=== PATIENT | male | born 1935 | race Caucasian/White ===

== ENCOUNTER 2024-08-10 16:23 | Inpatient (IN) | payer MEDICARE ==
[2024-08-10 18:37] VITALS: BMI 32.8
[2024-08-10] MEDS: HYDROcodone/Acetaminophen 10/325 mg Tablet PO PRN (23:04)
[2024-08-11] MEDS ORDERED: Non-Formulary Item 1 EACH (Docusate Sodium [Stool Softener] 50 MG Capsule) PO PRN (06:32)
[2024-08-11] MEDS ORDERED: Silver Sulfadiazine 1% Cream 20 GM TUBE TOP PRN (06:32)
[2024-08-11] MEDS ORDERED: Bisacodyl 10 MG SUPP PR PRN (06:39)
[2024-08-11] MEDS ORDERED: Bisacodyl 5 MG TAB PO PRN (06:39)
[2024-08-11 07:47] LABS: Anion Gap 14 mmol/L (10-20); BUN (Urea Nitrogen) 21 mg/dL (8.4-25.7); Calc. Creatinine Clearance 100 mL/min (70-130); Calcium 8.6 mg/dL (7.8-10.44); Carbon Dioxide 22 mmol/L (23-31); Chloride 105 mmol/L (98-107); Estimated GFR 87; Glucose 94 mg/dL (83-110); Potassium 4.7 mmol/L (3.5-5.1); Sodium 136 mmol/L (136-145)
[2024-08-11] MEDS: Cefdinir 300 MG CAP PO SCH (08:48)
[2024-08-11] MEDS: Potassium Chloride 20 MEQ TAB PO SCH (08:50)
[2024-08-11] MEDS: Multivitamin w/Zinc Stress 1 TAB PO SCH (08:50)
[2024-08-11] MEDS: CO Q-10 CAPSULE 100 MG PO SCH (08:50)
[2024-08-11] MEDS: Multivit, Therapeutic 1 TAB PO SCH (08:50)
[2024-08-11] MEDS: Lisinopril 20 MG TAB PO SCH (08:51)
[2024-08-11] MEDS: Metoprolol Tartrate 50 MG TAB PO SCH (08:51)
[2024-08-11] MEDS: Zonisamide 100 MG CAP PO SCH (08:51)
[2024-08-11] MEDS: Ascorbic Acid 500 mg Chewable Tablet PO SCH (08:53)
[2024-08-11] MEDS: Furosemide 20 MG TAB PO SCH (08:54)
[2024-08-11] MEDS: Famotidine 20 MG TAB PO SCH (08:55)
[2024-08-11] MEDS: Apixaban 5 MG TAB PO SCH (08:56)
[2024-08-11] MEDS: Empagliflozin 10 MG TAB PO SCH (08:59)
[2024-08-11] MEDS: Loratadine 10 MG TAB PO SCH (08:59)
[2024-08-11] MEDS ORDERED: Silver Sulfadiazine 1% Cream 20 GM TUBE TP PRN (10:19)
[2024-08-11] MEDS: Doxazosin 2 MG TAB PO SCH (20:52)
[2024-08-11] MEDS: Latanoprost 0.005% Ophth Soln 2.5 ml Bottle EA EYE SCH (20:53)
[2024-08-11] MEDS: Senokot 8.6 MG TAB PO SCH (20:53)
[2024-08-11] MEDS ORDERED: PRAVASTATIN SODIUM 40 MG PO SCH (21:00)
[2024-08-11] MEDS: HYDROcodone/Acetaminophen 10/325 mg Tablet PO PRN (21:01)
[2024-08-11] MEDS: PRAVASTATIN SODIUM 40 MG PO SCH (21:03)
[2024-08-12 05:30] LABS: #Basophils 0.1 thou/uL (0.0-0.2); #Eosinophils 0.3 thou/uL (0.0-0.7); #Lymphocytes 1.9 thou/uL (1.20-3.40); #Monocytes 0.8 thou/uL (0.11-0.59); #Neutrophils 5.4 thou/uL (1.40-6.50); %Basophils 1.1 % (0.0-1.0); %Eosinophils 3.9 % (0.0-10.0); %Lymphocytes 22.6 % (21.0-51.0); %Monocytes 9.3 % (0.0-10.0); Hematocrit 29.4 % (42.0-52.0); Hemoglobin 9.2 g/dL (14.0-18.0); Mean Corpuscular HGB CONC 31.2 g/dL (32.0-36.0); Mean Corpuscular Hemoglobin 31.6 pg (27.0-31.0); Mean Platelet Volume 6.6 fL (7.4-10.4); Platelet Count 177 10x3/uL (130-400); RBC Distribution Width 13.8 % (11.5-14.5); Red Blood Cell (RBC) Count 2.91 mill/uL (4.70-6.10); White Blood Cell (WBC) Count 8.5 10x3/uL (4.8-10.8)
[2024-08-12 05:32] LABS: ALT (SGPT) 121 U/L (8-55); AST (SGOT) 25 U/L (5-34); Albumin 2.2 g/dL (3.4-4.8); Alkaline Phosphatase 482 U/L (40-110); Anion Gap 12 mmol/L (10-20); BUN (Urea Nitrogen) 26 mg/dL (8.4-25.7); Bilirubin, Total 0.9 mg/dL (0.2-1.2); Calc. Creatinine Clearance 99 mL/min (70-130); Calcium 8.5 mg/dL (7.8-10.44); Carbon Dioxide 20 mmol/L (23-31); Chloride 106 mmol/L (98-107); Estimated GFR 87; Globulin 3.3 g/dL (2.4-3.5); Glucose 93 mg/dL (83-110); Potassium 4.7 mmol/L (3.5-5.1); Protein, Total 5.5 g/dL (5.8-8.1); Sodium 133 mmol/L (136-145)
[2024-08-12] MEDS ORDERED: FLU (Fluad Triv) TS24-25 (65UP)/MF59C/PF 45 MCG/0.5 ML Syringe IM ONE (09:00)
[2024-08-12] MEDS: HYDROcodone/Acetaminophen 5/325 mg Tablet PO PRN (09:55)
[2024-08-12 12:17] VITALS: BMI 32.8
[2024-08-13] MEDS: FLU (Fluad Triv) TS24-25 (65UP)/MF59C/PF 45 MCG/0.5 ML Syringe ONE (10:30)
[2024-08-14] MEDS: BUPRENORPHINE 15 MCG TD SCH (11:41)
[2024-08-16] MEDS: Senokot S 8.6-50 MG TAB PO PRN (02:41)
[2024-08-16 05:48] LABS: Hematocrit 30.2 % (42.0-52.0); Hemoglobin 9.4 g/dL (14.0-18.0); Platelet Count 259 10x3/uL (130-400)
[2024-08-16] MEDS: Polyethylene Glycol 3350 17 GM Packet PO PRN (05:52)
[2024-08-18] MEDS: Metoprolol Tartrate 25 MG TAB PO SCH ×2 (13:11→22:10)
[2024-08-19] MEDS ORDERED: Nystatin Powder 15 GM BOT TOP PRN (17:41)
[2024-08-21 06:32] LABS: ALT (SGPT) 35 U/L (8-55); AST (SGOT) 18 U/L (5-34); Albumin 2.8 g/dL (3.4-4.8); Alkaline Phosphatase 183 U/L (40-110); Anion Gap 12 mmol/L (10-20); BUN (Urea Nitrogen) 43 mg/dL (8.4-25.7); Bilirubin, Total 0.5 mg/dL (0.2-1.2); Calc. Creatinine Clearance 67 mL/min (70-130); Calcium 8.7 mg/dL (7.8-10.44); Carbon Dioxide 24 mmol/L (23-31); Cardiac Risk 2.8 (Less than 4.5); Chloride 109 mmol/L (98-107); Cholesterol 134 mg/dl (< 200 Desired); Estimated GFR 61; Globulin 3.5 g/dL (2.4-3.5); Glucose 106 mg/dL (83-110); HDL Cholesterol 48 mg/dL (>60 Neg Risk); LDL Cholesterol, Calculated 74 mg/dL; Potassium 5.1 mmol/L (3.5-5.1); Protein, Total 6.3 g/dL (5.8-8.1); Sodium 140 mmol/L (136-145); Triglycerides 62 mg/dL (Less than 150)
[2024-08-21 06:33] LABS: #Basophils 0.1 thou/uL (0.0-0.2); #Eosinophils 0.3 thou/uL (0.0-0.7); #Monocytes 0.8 thou/uL (0.11-0.59); #Neutrophils 2.3 thou/uL (1.40-6.50); %Basophils 1.8 % (0.0-1.0); %Eosinophils 5.6 % (0.0-10.0); %Lymphocytes 36.3 % (21.0-51.0); %Monocytes 14.3 % (0.0-10.0); Hematocrit 30.8 % (42.0-52.0); Hemoglobin 9.7 g/dL (14.0-18.0); Mean Corpuscular HGB CONC 31.4 g/dL (32.0-36.0); Mean Corpuscular Hemoglobin 31.5 pg (27.0-31.0); Mean Platelet Volume 5.3 fL (7.4-10.4); Platelet Count 347 10x3/uL (130-400); RBC Distribution Width 14.7 % (11.5-14.5); Red Blood Cell (RBC) Count 3.08 mill/uL (4.70-6.10); White Blood Cell (WBC) Count 5.4 10x3/uL (4.8-10.8)
[2024-08-21 10:15] LABS: Bilirubin Negative (Negative); Blood, Urine Negative (Negative); Clarity Clear (Clear); Glucose, Urine (Dipstick) 500 mg/dL (Negative); Ketone, Urine Negative (Negative); Leukocyte Negative (Negative); Nitrite Negative (Negative); Protein, Urine (Dipstick) Negative (Neg-Trace); Urobilinogen 0.2 mg/dL (Less than 2)
[2024-08-21 10:39] LABS: Bacteria/HPF Rare-Few HPF (None Seen); CAUTI Indications for Culture Urological Procedure; RBC/HPF None Seen HPF (0-3); Renal Epithelial 0-3 HPF (None Seen); Squamous Epithelial 0-3 HPF (0-3); WBC/HPF 0-3 HPF (0-3)
[2024-08-21 10:40] LABS: Urine Culture Reflex No No; Urine Culture Reflex Yes Yes
[2024-08-21 12:14] LABS: Creatinine, Urine 44.55 mg/dL (63-166)
[2024-08-21 12:15] LABS: Microalbumin Urine 0.7 mg/dL (0.5-50.0); Microalbumin/Creat Ratio 15.7 mg/g (Less than 30)
[2024-08-21 17:56] LABS: Hemoglobin A1c 5.5 % (4.0-6.0)
[2024-08-23] MEDS: Nystatin Powder 15 GM BOT TOP PRN (06:12)
[2024-08-24 06:41] VITALS: TEMP 97.6
[2024-08-24 08:21] VITALS: BP 100/68
== END 2024-08-24 13:30 | disposition home or self-care (01) | DRG 947 ==
LOC: BURMED 18:00
PROVIDERS: ADMIT Family Medicine; ATTEND Nurse Practitioner
PROC: 5A09357 Assistance with Respiratory Ventilation, Less than 24 Consecutive Hours, Continuous Positive Airway Pressure (ICD-10-PCS; principal; 2024-08-12)
DX: R53.81 Other malaise (principal); A41.9 Sepsis, unspecified organism; K85.90 Acute pancreatitis without necrosis or infection, unspecified; I50.32 Chronic diastolic (congestive) heart failure; I48.91 Unspecified atrial fibrillation; I25.10 Atherosclerotic heart disease of native coronary artery without angina pectoris; N40.0 Benign prostatic hyperplasia without lower urinary tract symptoms; G47.33 Obstructive sleep apnea (adult) (pediatric); Z79.899 Other long term (current) drug therapy; K21.9 Gastro-esophageal reflux disease without esophagitis; Z86.73 Personal history of transient ischemic attack (TIA), and cerebral infarction without residual deficits; Z87.891 Personal history of nicotine dependence; I11.0 Hypertensive heart disease with heart failure
CPT/HCPCS: 36415; 80048; 80053; 80061; 81001; 82043; 83036; 85014; 85018; 85025; 85049; 87077; 87086; 87186; 90653